=== PATIENT | male | born 1950 | race Caucasian/White ===

== ENCOUNTER → 2016-10-27 | Day surgery (SDC) | payer OTHER ==
[~2016-10-27] MED LIST: ASPI81TA19 PO; ATEN50TA PO; BUPIVACAINE HCL PF 0.25% 30 ML VIAL ONE; BUPIVACAINE HCL PF 0.5% 10 ML VIAL ONE; KETOROLAC TROMETHAMINE 30 MG/ML (IVP) VIAL IV PUSH ONE; LACTATED RINGER'S 1000 ML INJ 1,000 ML ONE; LIPI40TA; MIDAZOLAM HCL 2 MG/2 ML VIAL ONE; OMEP20TA PO; ONDANSETRON HCL 4 MG/2 ML VIAL IV PUSH ONE; PROPOFOL 200 MG/20 ML AMP IV ONE; SIMV40TA PO; SODIUM CHLORIDE 0.9% INJ 10 ML ONE; TOPR50TA; TRIAMCINOLONE ACETONIDE 40 MG/ML VIAL ONE; ceFAZolin 2 GM PREMIX 50 ML ONE
--- NOTE | 2016-10-28 05:34 | MP ---
cc: JOANNE STRINGER [facility] DATE OF SURGERY: 10/27/2016 PREOPERATIVE DIAGNOSIS 1. Right foot deep mass, presumed fibroma. 2. Left foot plantar fasciitis. POSTOPERATIVE DIAGNOSIS 1. Right foot deep mass, presumed fibroma. 2. Left foot plantar fasciitis. PROCEDURE PERFORMED 1. Trigger point injection within the medial aspect of the left mid plantar fascia. 2. Excision deep mass of the plantar fascia with near complete excision of medial and lateral band centrally measuring approximately 5 mm x 6 mm with ranging of 0.5 cm to 1 cm of depth. SPECIMEN Deep mass right foot, appears to be fibroma. ESTIMATED BLOOD LOSS Less than 30 mL. COMPLICATIONS None. ANESTHESIA General with 40 cc of 0.25% Marcaine plain. Trigger point injection contents were 0.25 cc of Kenalog 40 and 1 cc of lidocaine plain mixture. TOURNIQUET TIME 35 minutes at a setting of 215 mmHg about the patient's right ankle. DISPOSITION PACU then DC home once stable per same-day surgery criteria. DRAINS The patient had a TLS drain and bandage applied. JUSTIFICATION FOR PROCEDURE A pleasant 66-year-old male with an enlarging mass in the plantar foot. 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 We devised a plan to move forward with excision due to the size of the mass. The patient was educated on the high chance of recurrence, wound dehiscence, possible infection, need for more surgery at a later date. No guarantees were given or implied regarding the outcome. The patient understood. Since he is a smoker he is more prone to these complications regarding wound healing. PROCEDURE IN DETAIL Under mild sedation the patient was brought into the operating room and placed on the operating table in the supine position. Following the induction of general anesthesia a trigger-point injection was performed with the previous stated mixture of Kenalog and lidocaine in the insertional medial plantar fascial band of the left foot. A bandage was applied. The right foot was then scrubbed, prepped and draped in the usual aseptic fashion. The foot was elevated and exsanguinated. The previously placed mid calf tourniquet was inflated at 215 mmHg. A curvilinear incision was made in the plantar aspect of the mid arch. This incision ranged for approximately 10-12 cm. Sharp and blunt dissection was carried down to the deep fascial layer and the fibroma was identified. It was then released from the musculature superficial layer, wide excision. All venous structures that were encountered were Bovie'd and ligated as deemed necessary. Once the mass was excised in toto it was then passed off the surgical field for pathological analysis. Deep closure took place utilizing Vicryl. Skin was closed utilizing nylon. Before closing the wound a drain was then placed exiting the medial aspect of the wound. Upon relieving the tourniquet there was noted to be a prompt hyperemic response to all digits without any delayed capillary fill time. No excessive bleeding was noted at the surgery site. A bulky bandage was placed. The patient was transferred from the OR to PACU with all vital signs stable. The patient is non-weightbearing. I will remove the drain within the next 24-48 hours. ZANA Soriano /2:24 PM /5:26 AM
== END | disposition home or self-care (01) ==
LOC: ESDC 11:46
PROVIDERS: ATTEND Podiatrist Foot & Ankle Surgery
DX: D21.21 Benign neoplasm of connective and other soft tissue of right lower limb, including hip (principal); M72.2 Plantar fascial fibromatosis
CPT/HCPCS: 01470; 01991; 20552; 28041; 88305; J0690; J1885; J2250; J2405; J3010; J3301; J7120; 88304